=== PATIENT | male | born 1970 | race Caucasian/White ===

== ENCOUNTER → 2024-10-27 15:52 | Outpatient (REF) | payer BC, SELFPAY | LOC: RAD 15:52 | PROVIDERS: ATTENDING PHYSICIAN Family Medicine | DX: Z13.6 Encounter for screening for cardiovascular disorders (principal) | CPT/HCPCS: 75571 ==

== ENCOUNTER → 2024-11-02 14:26 | Outpatient (REF) | payer BC, SELFPAY | LOC: RAD 14:26 | PROVIDERS: ATTENDING PHYSICIAN Internal Medicine Rheumatology; FAMILY PHYSICIAN Family Medicine | DX: M10.9 Gout, unspecified (principal); M15.9 Polyosteoarthritis, unspecified; M17.10 Unilateral primary osteoarthritis, unspecified knee; M21.41 Flat foot [pes planus] (acquired), right foot | CPT/HCPCS: 73560; 73565; 73630 ==

== ENCOUNTER 2025-08-17 06:22 | Day surgery (SDC) | payer BC, SELFPAY | END 2025-08-17 09:33 | disposition home or self-care (01) | LOC: GI 06:22 | PROVIDERS: ATTENDING PHYSICIAN Internal Medicine Gastroenterology | DX: Z12.11 Encounter for screening for malignant neoplasm of colon (principal); D12.0 Benign neoplasm of cecum; K57.30 Diverticulosis of large intestine without perforation or abscess without bleeding; K64.8 Other hemorrhoids; Z86.0100 Personal history of colon polyps, unspecified | CPT/HCPCS: 45385; 88305 ==

== ENCOUNTER → 2025-08-26 09:28 | Outpatient (REF) | payer BC, SELFPAY | LOC: RCS 09:28 | PROVIDERS: ATTENDING PHYSICIAN Internal Medicine; FAMILY PHYSICIAN Family Medicine | DX: I25.10 Atherosclerotic heart disease of native coronary artery without angina pectoris (principal); I10 Essential (primary) hypertension; I77.810 Thoracic aortic ectasia | CPT/HCPCS: 93306 ==